=== PATIENT | male | born 1980 | race Hispanic/Latino ===

== ENCOUNTER 2021-05-25 15:51 | Emergency (ER) | payer BC, MEDICAID, OTHER ==
[~2021-05-25] VITALS: Ht 167.6 cm; Wt 108.9 kg
[2021-05-25 16:39] VITALS: BP 142/84
[2021-05-25] MEDS ORDERED: KETOROLAC 60 MG VIAL (30MG/ML) IM ONE (17:00)
[2021-05-25] MEDS ORDERED: NAPR-1180 PO (17:12)
== END 2021-05-25 17:41 | disposition home or self-care (01) ==
LOC: EDH 15:51
DX: S83.92XA Sprain of unspecified site of left knee, initial encounter (principal); I10 Essential (primary) hypertension; X58.XXXA Exposure to other specified factors, initial encounter; Y93.89 Activity, other specified; Y92.89 Other specified places as the place of occurrence of the external cause; Y99.8 Other external cause status
CPT/HCPCS: 29505; 73562; 96372; 99283; J1885